=== PATIENT | male | born 1960 | race Caucasian/White ===

== ENCOUNTER 2016-05-01 05:56 | Inpatient (IN) | payer OTHER ==
[2016-05-01] MEDS ORDERED: ROPIVICAINE 0.2%/MORPH PF/KETOROLAC - 51ML DISP.SYRINGE IA ONE ×2 (06:19→11:31)
[2016-05-01] MEDS ORDERED: TRANEXAMIC ACID 1000 MG/10 ML VIAL IVPUSH ONE (06:19)
[2016-05-01] MEDS ORDERED: oxyCODONE HCL 10 MG SUSTAINED ACTING TABLET PO ONE (06:19)
[2016-05-01] MEDS ORDERED: CELECOXIB 200 MG CAPSULE PO ONE (06:19)
[2016-05-01] MEDS ORDERED: GABAPENTIN 300 MG CAPSULE (FP) PO ONE (06:19)
[2016-05-01] MEDS ORDERED: CEFAZOLIN 2 GM in DEXTROSE 5%-WATER - 50 ML IVPB ONE (06:19)
[2016-05-01 06:41] VITALS: BMI 32.1
[2016-05-01] MEDS ORDERED: MIDAZOLAM HCL 2 MG/2 ML SINGLE DOSE VIAL ONE ×2 (06:57→07:41)
[2016-05-01] MEDS ORDERED: DEXAMETHASONE SOD PHOSPHATE/PF 10 MG/ML SDV ONE (06:57)
[2016-05-01] MEDS ORDERED: ROPIVACAINE HCL 0.5% 30ML VIAL ONE (06:57)
[2016-05-01] MEDS ORDERED: ceFAZolin SODIUM 1 GM VIAL ONE ×2 (07:13→08:18)
[2016-05-01] MEDS ORDERED: VANCOMYCIN 1,000 MG VIAL (RESTRICTED TO ID ONLY) ONE (07:13)
[2016-05-01] MEDS ORDERED: BUPIVACAINE HCL/PF 0.5% (5MG/ML) 10 ML VIAL ONE (07:47)
[2016-05-01] MEDS ORDERED: PROPOFOL 20 ML ONE ×4 (07:53→12:04)
--- NOTE | 2016-05-01 08:02 | HP ---
Admitting History and Physical - Admission Chief Complaint: Right hip OA History of Present Illness: Right hip pain x >1yr, failed conservative management, indicated for right KEVIN History Source: Patient, Medical Record Limitations to Obtaining History: No Limitations - Past Medical History Renal/: Yes: Other (prostatitis) Musculoskeletal: Yes: Chronic low back pain, Osteoarthritis ENT: Yes: Allergic Rhinitis - Past Surgical History Past Surgical History: Yes: Laminectomy - Smoking History Smoking history: Never smoked Have you smoked in the past 12 months: No - Alcohol/Substance Use Hx Alcohol Use: Yes (RARE) - Social History Usual Living Arrangement: Yes: With Spouse Home Medications - Allergies Allergies/Adverse Reactions: Allergies Allergy/AdvReac Type Severity Reaction Status Date / Time No Known Allergies Allergy Verified 12/15/15 13:42 - Home Medications Home Medications: Ambulatory Orders Simvastatin 10 mg PO HS 12/15/15 Oxycodone HCl/Acetaminophen [Percocet 5-325 mg Tablet] 1 tab PO Q4H PRN #20 tablet MDD 6 12/20/15 Glucosa Walker 2Kcl/Chondroitin Walker [Glucosamine & Chondroitin Cap] 1 each PO DAILY 04/24/16 Multivitamins [Tab-A-Vit -] 1 tab PO DAILY 04/24/16 [place]-3S/Dha/Epa/Fish Oil/D3 [[place]-Roafz-9-Vit D Softgel] 1 each PO DAILY Physical Examination Vital Signs: Vital Signs Temperature 99 F 05/01/16 06:38 Pulse Rate 70 05/01/16 06:38 Respiratory Rate 18 05/01/16 06:38 Blood Pressure 137/85 05/01/16 06:38 O2 Sat by Pulse Oximetry (%) Constitutional: Yes: Well Nourished, No Distress, Calm Eyes: Yes: WNL, Conjunctiva Clear HENT: Yes: WNL, Atraumatic, Normocephalic Neck: Yes: WNL, Supple Cardiovascular: Yes: WNL, Regular Rate and Rhythm Respiratory: Yes: WNL, Regular Gastrointestinal: Yes: WNL, Soft ...Rectal Exam: Yes: Deferred Musculoskeletal: Yes: Joint Stiffness, Joint Swelling, Muscle Pain Edema: No Peripheral Pulses WNL: Yes Integumentary: Yes: WNL Neurological: Yes: WNL, Alert, Oriented ...Motor Strength: WNL Psychiatric: Yes: WNL, Alert, Oriented Labs: Reviewed in chart from [facility] - Results X-ray: Image Reviewed (severe right hip OA) Cat Scan: Report Reviewed, Image Reviewed Problem List - Problems (1) Osteoarthritis of right hip Code(s): M16.11 - UNILATERAL PRIMARY OSTEOARTHRITIS, RIGHT HIP Qualifiers: Osteoarthritis type: primary Qualified Code(s): M16.11 - Unilateral primary osteoarthritis, right hip Assessment/Plan 56yo male with right hip OA for right KEVIN
[2016-05-01] MEDS ORDERED: ePHEDrine SULFATE 50 MG/1 ML AMPULE ONE (09:09)
[2016-05-01] MEDS ORDERED: TRANEXAMIC ACID 1000 MG/10 ML VIAL IVPB ONE (11:32)
[2016-05-01] MEDS ORDERED: VANCOMYCIN 1,000 MG VIAL (RESTRICTED TO ID ONLY) IVPB ONE (11:34)
[2016-05-01] MEDS ORDERED: TRANEXAMIC ACID 1000 MG/10 ML VIAL ONE (12:00)
--- NOTE | 2016-05-01 12:16 | OP ---
Operative Note - Note: Operative Date: 05/01/16 Pre-Operative Diagnosis: right hip OA Operation: right KEVIN with MAKOplasty Post-Operative Diagnosis: Same as Pre-op Surgeon: Mir Cooper [facility] [employer] Consultant: Katelyn Menjivar Anesthesia: Spinal Estimated Blood Loss (mls): 200 Operative Report Dictated: Yes
[2016-05-01 12:18] LABS: HIV 1 & 2 AB NEGATIVE; HIV 1 AGp24 NEGATIVE
[2016-05-01] MEDS ORDERED: MAG HYDROX/AL HYDROX/SIMETH 30 ML UNIT-DOSE CUP PO PRN (12:21)
[2016-05-01] MEDS ORDERED: MAGNESIUM HYDROX 2400MG/30ML ORAL SUSPENSION 30 ML CUP PO PRN (12:21)
[2016-05-01] MEDS ORDERED: LACTATED RINGERS SOLUTION 1,000 ML IV SCH ×2 (12:30→12:45)
[2016-05-01] MEDS ORDERED: ACETAMINOPHEN 1000 MG/100 ML VIAL (NON FORMULARY) IVPB ONE (12:34)
[2016-05-01] MEDS ORDERED: oxyCODONE HCL 5 MG TABLET PO PRN (12:34)
[2016-05-01] MEDS ORDERED: ONDANSETRON 4 MG/2 ML VIAL IVPB PRN (15:21)
[2016-05-01] MEDS: oxyCODONE HCL 5 MG TABLET PO PRN ×2 (16:45→20:06)
[2016-05-01] MEDS: CEFAZOLIN 2 GM/D5W 50 ML IVPB SCH (19:51)
[2016-05-01] MEDS: CELECOXIB 200 MG CAPSULE PO SCH (21:47)
[2016-05-01] MEDS: SENNOSIDES/DOCUSATE COMBO (SENNA PLUS) TABLET (UD) PO SCH (21:48)
[2016-05-01] MEDS: GABAPENTIN 300 MG CAPSULE (FP) PO SCH (21:48)
[2016-05-01] MEDS: ATORVASTATIN CA 10 MG TABLET (FP) PO SCH (21:48)
[2016-05-01] MEDS: ASCORBIC ACID 500 MG TABLET (FP) PO SCH (21:48)
[2016-05-02] MEDS: CEFAZOLIN 2 GM/D5W 50 ML IVPB SCH (01:38)
[2016-05-02] MEDS: oxyCODONE HCL 5 MG TABLET PO PRN ×6 (02:31→22:14)
--- NOTE | 2016-05-02 07:47 | SPEC ---
DATE OF OPERATION: 05/01/2016 PREOPERATIVE DIAGNOSIS: Right hip osteoarthritis. POSTOPERATIVE DIAGNOSIS: Right hip osteoarthritis. PROCEDURE: Right total hip replacement with MAKOplasty robotic navigation. SURGEON: Aleksandar Gold MD OVERLOCK SLEEVE SETTER: PAOLO Boggs. ANESTHESIA: Spinal plus sedation. ESTIMATED BLOOD LOSS: 200 mL. COMPLICATIONS: None. DISPOSITION: The patient was transferred to the PACU in stable condition. SPECIMENS: Resected bone was sent for pathology analysis. IMPLANTS USED: Staley Accolade 2 size 7 femoral component, 58-mm acetabular component with 25-mm screw, MDM liner and head ball with -2.7 offset ceramic head ball. . INDICATIONS: This is a 56-year-old male who presented to the office complaining of severe right lower extremity pain. He was seen and examined by Dr. Gold in the office and diagnosed with severe right hip osteoarthritis. The patient was in tremendous pain and had failed multiple modalities of non-operative management, and he was indicated for a right total hip replacement. The risks, benefits, and alternatives to the procedure were explained to the patient in great detail, and he elected to proceed with the surgery. DESCRIPTION OF PROCEDURE: On the day of surgery, the patient was taken to the operating room and placed on the OR table. Spinal anesthesia was administered by the anesthesiologist. The patient was then positioned in the lateral decubitus position on the table and all bony prominences were padded. An axillary roll was placed. The operative hip was then prepped and draped in the usual sterile fashion and intravenous antibiotics were given for infection prophylaxis. A surgical time-out was then performed with the team, and the patients identity, procedure, side, availability of implants, and the administration of antibiotics was confirmed. An approximately 15cm longitudinal incision was made through the skin centered on the greater trochanter of the hip. This dissection was carried down through the subcutaneous tissues to the deep fascia. This fascia was then incised and a cobra was placed around the inferior femoral neck. Electrocautery was used to reflect the anterior 40% of the gluteus medius and minimus starting at the musculotendinous junction and leaving a cuff for closure. This was reflected to reveal the capsule of the hip joint. An anterior capsulectomy was performed and the femoral head and neck was visualized. Grade 4 changes were noted diffusely throughout the joint. At this point, three small stab incisions were made superior to the main incision along the iliac crest. Three self-drilling Eric pins were then placed and the Expreem pelvic array was attached. Reference points on the limb were then entered into the robotic device and the limb length deficiency, offset, and femoral neck resection level were then calculated by the software. The hip was then dislocated with traction and external rotation, an oscillating saw was used to make the femoral neck cut at the level previously templated, and the femoral head was removed. Attention was then turned to the acetabulum. Retractors were then placed around the acetabulum and the labrum was removed. An acetabular checkpoint pin and the Expreem software was used to register the contours of the acetabulum. The acetabulum was then reamed in a single stage to the preoperatively templated size using the Expreem robotic arm. The appropriately sized cup was then impacted and had solid fixation as well as the preset inclination and version of 40 and 20 degrees, respectively. A polyethylene liner was then placed in the cup. Attention was then turned back to the femur, which was externally rotated for improved visualization. A femoral neck elevator was used to present the femoral neck cut, a box osteotome was used to enter the femoral canal, and a canal finder was used to go down the femoral shaft. The Manjeet broaches were used sequentially until the optimal scratch fit was achieved. This correlated to the preoperatively templated size. From here, several different offset head and neck configurations were tested until excellent stability and length was obtained. These measurements were quantified using the Expreem software. All trial components were then removed, the femur was copiously irrigated, and the final components were placed. Leg length and stability were checked again and found to be excellent. Irrigation was performed again. Wound closure was started by repairing the abductor muscles with a No. 2 Fiberwire stitch in a Lincoln configuration passed through bone tunnels in the greater trochanter and tied over a bony bridge. This repair was then reinforced with a 0 VLoc 180 barbed suture. Next, No. 1 Polysorb and 0 VLoc 180 was used to close the fascia. The deep subcutaneous tissue was closed with No. 1 Polysorb sutures, and 2-0 Polysorb was used for the superficial subcutaneous tissue. The skin was closed using both 3-0 VLoc 90 suture in a running subcuticular fashion and SwiftSet skin adhesive. The Manjeet array and pins were removed from the iliac crest and the stab incision sites were irrigated and closed with 4-0 Polysorb sutures and SwiftSet skin adhesive. Once this was completed a sterile dressing was applied. The patient was then awakened and taken to the PACU in stable condition. ALEKSANDAR GOLD M.D. HEAVEN/[id number]
[2016-05-02] MEDS: ASPIRIN 325 MG TABLET PO SCH (08:00)
[2016-05-02 09:06] LABS: MCH 25.8 pg (25.7-33.7); MCHC 32.4 g/dl (32.0-35.9); MEAN CELL VOLUME 79.8 fl (80-96); MEAN PLT VOLUME 9.5 fl (7.5-11.1); PLATELET COUNT 169 K/MM3 (134-434); RDW 13.9 % (11.9-15.9)
[2016-05-02] MEDS: GABAPENTIN 300 MG CAPSULE (FP) PO SCH ×2 (09:10→21:22)
[2016-05-02] MEDS: CELECOXIB 200 MG CAPSULE PO SCH ×2 (09:10→21:22)
[2016-05-02] MEDS: SENNOSIDES/DOCUSATE COMBO (SENNA PLUS) TABLET (UD) PO SCH ×2 (09:11→21:22)
[2016-05-02 09:36] LABS: CALCIUM 9.2 mg/dl (8.4-10.2); CREATININE 0.8 mg/dl (0.6-1.3)
[2016-05-02] MEDS: PANTOPRAZOLE 40 MG TABLET (FP) PO SCH (10:00)
[2016-05-02] MEDS: MULTIVITAMINS (DAILY MVI) TABLET (FP) PO SCH (10:00)
[2016-05-02] MEDS: ASCORBIC ACID 500 MG TABLET (FP) PO SCH ×2 (10:00→21:22)
--- NOTE | 2016-05-02 10:28 | PN ---
Progress Note (short form) - Note Progress Note: ANESTHESIA POST-OP CHECK 56M s/p right total hip replacement under spinal anesthesia POD #1. No acute complaints, tolerating PO, ambulated with PT. Pain 2-4/10 and tolarerable, denies backache, headache. Vital Signs Temperature 98.6 F 05/02/16 05:34 Pulse Rate 84 05/02/16 05:34 Respiratory Rate 20 05/02/16 08:24 Blood Pressure 114/72 05/02/16 05:34 O2 Sat by Pulse Oximetry (%) 97 05/02/16 08:24 Active Medications Al Hydroxide/Mg Hydroxide (Mylanta Oral Suspension -) 30 ml PO Q4H PRN PRN Reason: DYSPEPSIA Ascorbic Acid (Vitamin C -) 500 mg PO BID [facility] Last Admin: 05/01/16 21:48 Dose: 500 mg Aspirin (Asa -) 325 mg PO DAILY@0800 [facility] Last Admin: 05/02/16 08:00 Dose: 325 mg Atorvastatin Calcium (Lipitor -) 10 mg PO HS [facility] Last Admin: 05/01/16 21:48 Dose: 10 mg Celecoxib (Celebrex -) 200 mg PO BID [facility] Last Admin: 05/02/16 09:10 Dose: 200 mg Fentanyl (Sublimaze Injection -) 50 mcg IVPUSH [id number] PRN PRN Reason: PAIN Stop: 05/04/16 15:20 Gabapentin (Neurontin -) 300 mg PO BID [facility] Stop: 05/04/16 21:59 Last Admin: 05/02/16 09:10 Dose: 300 mg Lactated Ringer's (Lactated Ringers Solution) 1,000 mls @ 125 mls/hr IV ASDIR [facility] Magnesium Hydroxide (Milk Of Magnesia -) 30 ml PO PRN PRN PRN Reason: CONSTIPATION Multivitamins/Minerals/Vitamin C (Tab-A-Vit -) 1 tab PO DAILY [facility] Ondansetron HCl (Zofran Injection) 4 mg IVPB Q6H PRN PRN Reason: NAUSEA Oxycodone HCl (Roxicodone -) 10 mg PO Q3H PRN PRN Reason: PAIN LEVEL 6-10 Last Admin: 05/02/16 09:11 Dose: 10 mg Oxycodone HCl (Roxicodone -) 5 mg PO Q3H PRN PRN Reason: PAIN LEVEL 1-5 Pantoprazole Sodium (Protonix -) 40 mg PO DAILY [facility] Senna/Docusate Sodium (Pericolace -) 2 tablet PO BID [facility] Last Admin: 05/02/16 09:11 Dose: 2 tablet Gen: awake, alert No apparent anesthesia complications, pain well controlled. Continue management as per primary team.
--- NOTE | 2016-05-02 16:18 | PN ---
Progress Note (short form) - Note Progress Note: Pt seen and examined this AM. Doing well. Pain well controlled. AVSS Selected Entries 05/02/16 13:57 Temperature 98.4 F Pulse Rate 90 Respiratory 20 Rate Blood Pressure 128/69 Laboratory Tests 05/02/16 05/02/16 08:35 08:35 WBC 13.0 H Hgb 12.3 Hct 38.1 Plt Count 169 Sodium 137 Potassium 4.3 Chloride 104 Carbon Dioxide 24 Anion Gap 9 BUN 19 H Creatinine 0.8 Random Glucose 186 H Calcium 9.2 Gen: NAD RLE: c/d/i, NVID A/P 56yo male POD#1 s/p R KEVIN 1. PT/OOB 2. D/C home tomorrow Problem List - Problems (1) Osteoarthritis of right hip Code(s): M16.11 - UNILATERAL PRIMARY OSTEOARTHRITIS, RIGHT HIP Qualifiers: Osteoarthritis type: primary Qualified Code(s): M16.11 - Unilateral primary osteoarthritis, right hip
[2016-05-02] MEDS: ATORVASTATIN CA 10 MG TABLET (FP) PO SCH (21:22)
[2016-05-03] MEDS: oxyCODONE HCL 5 MG TABLET PO PRN ×2 (04:49→08:50)
[2016-05-03 06:28] VITALS: BP 125/72; PULSE 87; TEMP 98.5
[2016-05-03] MEDS: ASPIRIN 325 MG TABLET PO SCH (08:05)
[2016-05-03 08:25] LABS: MCH 26.4 pg (25.7-33.7); MEAN CELL VOLUME 79.8 fl (80-96); MEAN PLT VOLUME 9.8 fl (7.5-11.1); PLATELET COUNT 166 K/MM3 (134-434); RDW 13.9 % (11.9-15.9); WHITE BLOOD COUNT 8.9 K/mm3 (4.0-10.0)
[2016-05-03 08:34] LABS: CALCIUM 8.7 mg/dl (8.4-10.2); CREATININE 0.9 mg/dl (0.6-1.3)
--- NOTE | 2016-05-03 08:52 | PN ---
Progress Note (short form) - Note Progress Note: Pt seen and examined this AM. Doing well. Pain well controlled. AVSS Selected Entries 05/03/16 06:27 Temperature 98.5 F Pulse Rate 87 Respiratory 19 Rate Blood Pressure 125/72 O2 Sat by Pulse 98 Oximetry (%) Oxygen Delivery Room Air Method Laboratory Tests 05/03/16 05/03/16 07:30 07:30 WBC 8.9 D Hgb 12.4 Hct 37.6 Plt Count 166 Sodium 138 Potassium 3.9 Chloride 100 Carbon Dioxide 30 H D Anion Gap 8 BUN 17 Creatinine 0.9 Random Glucose 107 H D Calcium 8.7 Gen: NAD RLE: c/d/i, NVID A/P 56yo male POD#2 s/p R KEVIN 1. PT/OOB 2. D/C home today Problem List - Problems (1) Osteoarthritis of right hip Code(s): M16.11 - UNILATERAL PRIMARY OSTEOARTHRITIS, RIGHT HIP Qualifiers: Osteoarthritis type: primary Qualified Code(s): M16.11 - Unilateral primary osteoarthritis, right hip
[2016-05-03] MEDS: SENNOSIDES/DOCUSATE COMBO (SENNA PLUS) TABLET (UD) PO SCH (09:19)
[2016-05-03] MEDS: MULTIVITAMINS (DAILY MVI) TABLET (FP) PO SCH (09:20)
[2016-05-03] MEDS: CELECOXIB 200 MG CAPSULE PO SCH (09:20)
[2016-05-03] MEDS: GABAPENTIN 300 MG CAPSULE (FP) PO SCH (09:21)
[2016-05-03] MEDS: PANTOPRAZOLE 40 MG TABLET (FP) PO SCH (09:21)
[2016-05-03] MEDS: ASCORBIC ACID 500 MG TABLET (FP) PO SCH (09:21)
--- NOTE | 2016-05-03 13:45 | PATH ---
Surgical Pathology Report Patient Name: ALLA LOCKHART Med. Rec. #: [id number] /Age/Gender: 1960 (Age: 56) / M Account: [id number] Location: [facility] Taken: 05/01/2016 Received: 05/01/2016 Reported: 05/03/2016 Physicians: Mir Cooper M.D. Specimen(s) Received RIGHT FEMORAL HEAD Clinical History Right hip osteoarthritis Final Diagnosis FEMORAL HEAD, RIGHT, TOTAL HIP REPLACEMENT: DEGENERATIVE JOINT DISEASE. Electronically Signed Nadine Guillen M.D. Gross Description Received in formalin, labeled " right femoral head," is a 5.5 x 5.5 x 5.0 cm. femoral head with a 0.8 cm in length portion of femoral length attached. The margin of resection is smooth. There is a 4.5 cm in greatest dimension area of eburnation present. The remaining articular surface is ferguson-yellow and focally granular and nodular. The underlying trabecular bone is yellow and hard. A surgical sales representative section is submitted in one cassette, following decalcification. 05/02/201605/02/2016
== END 2016-05-03 11:40 | disposition home health service (06) | DRG 470 ==
LOC: FM/S 05:56
PROVIDERS: ADMIT Student in an Organized Health Care Education/Training Program; ATTEND Student in an Organized Health Care Education/Training Program
PROC: 8E0WXBZ Computer Assisted Procedure of Trunk Region (ICD-10-PCS; 2016-05-01)
PROC: 0SR90JZ Replacement of Right Hip Joint with Synthetic Substitute, Open Approach (ICD-10-PCS; principal; 2016-05-01 09:21)
DX: M16.11 Unilateral primary osteoarthritis, right hip (principal); M54.5 Low back pain; J30.89 Other allergic rhinitis; E66.8 Other obesity; Z68.32 Body mass index [BMI] 32.0-32.9, adult; Z71.3 Dietary counseling and surveillance
CPT/HCPCS: 36415; 73523-TC; 80048; 85027; 87389; 88304-TC; 88311-TC; 94010; 94760; 97116-GP; 97162-GP

== ENCOUNTER 2019-02-10 07:23 | Day surgery (SDC) | payer OTHER ==
[2019-02-06 14:24] VITALS: BMI 28.5
[2019-02-10] MEDS ORDERED: LIDOCAINE HCL/PF 2% SDV 5ML VIAL ONE (07:47)
[2019-02-10] MEDS ORDERED: PROPOFOL 20 ML ONE ×4 (07:47)
[2019-02-10 08:50] VITALS: TEMP 97.5
[2019-02-10 09:33] VITALS: BP 115/74; PULSE 72
== END 2019-02-10 09:33 | disposition home or self-care (01) ==
LOC: FASU-ENDO 07:23
PROVIDERS: ATTEND Internal Medicine Gastroenterology
PROC: 0DJD8ZZ Inspection of Lower Intestinal Tract, Via Natural or Artificial Opening Endoscopic (ICD-10-PCS; principal; 2019-02-10 08:27)
DX: Z86.010 Personal history of colon polyps (principal)